=== PATIENT | female | born 1965 | race Hispanic/Latino ===

== ENCOUNTER 2017-05-22 20:15 | Observation (INO) | payer OTHER ==
[2017-05-22 21:29] LABS: ALB/GLOB RATIO 1.4 (1.1-1.8); ALBUMIN 4.7 g/dL (3.0-4.8); ALT/SGPT 80 U/L (7-56); AST/SGOT 51 U/L (15-39); BLOOD UREA NITROGEN 22 mg/dL (7-21); CALCIUM 9.7 mg/dL (8.4-10.5); GFR AFRICAN-AMERICAN > 60; GFR NON-AFRICAN AMERICAN 52
[2017-05-22 21:41] LABS: BASO # 0.03 K/mm3 (0.0-2.0); BASO % 0.4 % (0.0-3.0); EOS # 0.1 (0.0-0.7); EOS % 1.4 % (1.5-5.0); GRAN # 5.04 (1.4-6.5); GRAN % 59.8 % (50.0-68.0); HEMOGLOBIN 14.1 gm/dL (12.0-16.0); LYMPH # 2.5 (1.2-3.4); LYMPH % 30.2 % (22.0-35.0); MEAN CELL VOLUME 89.2 fL (80.0-105.0); MEAN CORPUSCULAR HEMOGLOBIN 31.1 pg (25.0-35.0); MEAN CORPUSCULAR HGB CONC 34.8 g/dl (31.0-37.0); MEAN PLATELET VOLUME 10.4 fl (7.0-11.0); MONO # 0.7 (0.1-0.6); MONO % 8.2 % (1.0-6.0); PLATELET COUNT 234 10^3/uL (120.0-450.0); RBC 4.54 10^6/uL (3.5-6.1); RED CELL DISTRIBUTION WIDTH 13.4 % (11.5-14.5); WHITE BLOOD COUNT 8.4 10^3/ul (4.5-11.0)
[2017-05-22 21:43] LABS: TROPONIN I < 0.01 ng/mL
[2017-05-22 21:49] LABS: CK-MB 2.5 ng/mL (0.0-3.6)
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
[2017-05-23 00:50] LABS: URINE BILIRUBIN NEGATIVE (NEGATIVE); URINE BLOOD TRACE-INTACT (NEGATIVE); URINE GLUCOSE (UA) NEGATIVE (NEGATIVE); URINE LEUKOCYTE ESTERASE TRACE Leu/uL (NEGATIVE); URINE NITRATE NEGATIVE (NEGATIVE); URINE PROTEIN 30 mg/dL (<30 mg/dL); URINE UROBILINOGEN 0.2 E.U./dL (<1 E.U./dL)
[2017-05-23 01:05] LABS: URINE COLOR YELLOW (YELLOW)
[2017-05-23 01:06] LABS: URINE APPEARANCE CLEAR (CLEAR)
[2017-05-23 01:08] LABS: URINE RBC 0 - 2 /hpf (0-2)
[2017-05-23 01:09] LABS: URINE BACTERIA FEW (NEG); URINE EPITHELIAL CELLS 0 - 2 /hpf (0-5)
[2017-05-23 03:12] VITALS: BMI 28.3
[2017-05-23] MEDS ORDERED: Pneumococcal 23-Valent Vaccine IM ONE (03:13)
[2017-05-23 06:02] VITALS: BP 131/78; RESP 20; TEMP 98.4; O2SAT 97
--- NOTE | 2017-05-23 07:26 | CT ---
PROCEDURE: CT HEAD WITHOUT CONTRAST. HISTORY: Altered mental status COMPARISON: None available. TECHNIQUE: Axial computed tomography images were obtained through the head/brain without intravenous contrast. Radiation dose: Total exam DLP = 941.65 mGy-cm. This CT exam was performed using one or more of the following dose reduction techniques: Automated exposure control, adjustment of the mA and/or kV according to patient size, and/or use of iterative reconstruction technique. FINDINGS: HEMORRHAGE: No intracranial hemorrhage. BRAIN: [place]-white matter differentiation is preserved. There is no mass, mass effect or abnormal extra-axial fluid collection VENTRICLES: The ventricles are normal in size, shape and configuration. CALVARIUM: The skull base and calvarium are normal. PARANASAL SINUSES: Predominantly clear. MASTOID AIR CELLS: Predominantly clear. OTHER FINDINGS: None. IMPRESSION: No acute intracranial abnormality.
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
--- NOTE | 2017-05-23 07:47 | RAD ---
HISTORY: Chest pain COMPARISON: No prior. FINDINGS: LUNGS: The lungs are well inflated and clear. PLEURA: No significant pleural effusion identified, no pneumothorax apparent. CARDIOVASCULAR: Normal. OSSEOUS STRUCTURES: No significant abnormalities. VISUALIZED UPPER ABDOMEN: Normal. OTHER FINDINGS: None. IMPRESSION: No active pulmonary disease.
[2017-05-23 09:04] LABS: HDL CHOLESTEROL 48 mg/dL (29-60); LDL CHOLESTEROL 54 mg/dL (0-129)
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
[2017-05-23 11:27] VITALS: PULSE 98
--- NOTE | 2017-05-23 16:36 | CARD ---
APPROVED REPORT EKG Measurement Heart [id number] <Conclusion> Normal sinus rhythm Normal ECG
[2017-05-23 16:43] LABS: HEPATITIS B SURFACE AG NEGATIVE (NEGATIVE)
[2017-05-23 16:48] LABS: HEPATITIS A IGM NEGATIVE (NEGATIVE)
--- NOTE | 2017-05-23 16:48 | CARD ---
APPROVED REPORT EKG Measurement Heart [id number] <Conclusion> Sinus tachycardia Possible Left atrial enlargement Borderline ECG
[2017-05-23 16:49] LABS: HEPATITIS B CORE AB NEGATIVE (NEGATIVE)
[2017-05-23 17:00] LABS: HEPATITIS C ANTIBODY NEGATIVE (NEGATIVE)
== END 2017-05-23 11:52 | disposition home or self-care (01) ==
LOC: ED 20:15 → ERH 05-23 01:17 → 2RNO 05-23 02:49
PROVIDERS: ADMIT Family Medicine; ATTEND Family Medicine
DX: F41.0 Panic disorder [episodic paroxysmal anxiety] (principal); R41.2 Retrograde amnesia
CPT/HCPCS: 36415; 70450; 71010; 80053; 80061; 80074; 81001; 82550; 82553; 83615; 83735; 84443; 84484; 85025; 85651; 87086; 93005; 99285; G0378